=== PATIENT | female | born 1985 | race African-American/Black ===

== ENCOUNTER → 2016-09-20 | Outpatient (CLI) | payer OTHER ==
[~2016-09-20] MED LIST: AMOXICILLIN PO; AMOXICILLIN500 M1 PO; AUGMENTIN PO; BACTRIM DS TABL1 TA1 PO; CIPRO PO; IBUPROFEN PO; IBUPROFEN800 MG PO; LORTAB 7.51 TAB PO; MOTRIN600 MG PO; PHENTERMINE PO; PRENATAL MULITV1 TAB PO; PYRIDIUM PO; RONDEX SYRUP118 ML PO; TRIAMTERENE/HCTZ PO; VIBRAMYCIN100 M1 DOB; WATER PILL; [UNRECOGNIZED DRUG - OTHER]
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
== END | disposition home or self-care (01) ==
LOC: SMRI 14:43
DX: T14.8 Other injury of unspecified body region (principal); M89.8X5 Other specified disorders of bone, thigh
CPT/HCPCS: 73723; A9581